=== PATIENT | female | born 1955 | race Caucasian/White ===

== ENCOUNTER 2023-09-18 03:54 | Day surgery (SDC) | payer BC ==
[2023-09-13 10:39] VITALS: BMI 21.6
[2023-09-18] MEDS ORDERED: LIDOCAINE HCL 1%, 10 MG/ML (20ML VIAL) ONE (11:21)
[2023-09-18] MEDS ORDERED: BUPIVACAINE HCL/PF 0.5% (5MG/ML) 10 ML VIAL ONE (11:21)
[2023-09-18] MEDS ORDERED: FENTANYL CITRATE/PF 50 MCG/ML VIAL ONE (12:08)
[2023-09-18] MEDS ORDERED: MIDAZOLAM HCL 2 MG/2 ML SINGLE DOSE VIAL ONE (12:08)
[2023-09-18] MEDS ORDERED: PROPOFOL 20 ML ONE (12:12)
[2023-09-18] MEDS: ceFAZolin SODIUM 1 GM VIAL IVPB ONE (12:39)
[2023-09-18] MEDS: LIDOCAINE HCL 1%, 10 MG/ML (20ML VIAL) INF ONE (12:44)
[2023-09-18] MEDS ORDERED: BACITRACIN ZINC 15 GM TUBE TOPICAL OINTMENT ONE (13:00)
[2023-09-18] MEDS: BACITRACIN ZINC 15 GM TUBE TOPICAL OINTMENT TP ONE (13:03)
[2023-09-18 14:11] VITALS: RESP 18
[2023-09-18 14:53] VITALS: BP 106/74; PULSE 60; TEMP 98.2
== END 2023-09-18 14:50 | disposition home or self-care (01) ==
LOC: JASU-SURG 03:54
PROVIDERS: ATTEND Surgery
PROC: 0JB70ZZ Excision of Back Subcutaneous Tissue and Fascia, Open Approach (ICD-10-PCS; principal; 2023-09-18 09:00)
DX: L72.3 Sebaceous cyst (principal)
CPT/HCPCS: 88304-TC